=== PATIENT | female | born 1970 | race Caucasian/White ===

== ENCOUNTER 2016-10-27 08:52 | Outpatient (CLI) | payer OTHER | END 2016-10-27 23:59 | disposition home or self-care (01) | LOC: RAD 08:52 | PROVIDERS: ATTEND Podiatrist Foot & Ankle Surgery | DX: M25.571 Pain in right ankle and joints of right foot (principal); R60.9 Edema, unspecified | CPT/HCPCS: 73630-TC ==

== ENCOUNTER 2016-11-10 08:40 | Outpatient (CLI) | payer OTHER | END 2016-11-10 23:59 | disposition home or self-care (01) | LOC: WOU 08:40 | PROVIDERS: ATTEND Podiatrist Foot & Ankle Surgery | DX: M79.671 Pain in right foot (principal); R60.0 Localized edema | CPT/HCPCS: G0463 ==

== ENCOUNTER 2016-12-15 08:00 | Outpatient (CLI) | payer OTHER | END 2016-12-15 23:59 | disposition home or self-care (01) | LOC: WOU 08:00 | PROVIDERS: ATTEND Podiatrist Foot & Ankle Surgery | DX: R60.0 Localized edema (principal); B35.1 Tinea unguium | CPT/HCPCS: G0463 ==

== ENCOUNTER 2017-02-09 08:20 | Outpatient (CLI) | payer OTHER | END 2017-02-09 23:59 | disposition home or self-care (01) | LOC: WOU 08:20 | PROVIDERS: ATTEND Podiatrist Foot & Ankle Surgery | DX: R60.0 Localized edema (principal); M79.671 Pain in right foot | CPT/HCPCS: G0463 ==